=== PATIENT | female | born 1985 | race African-American/Black ===

== ENCOUNTER 2025-08-21 18:11 | Emergency (ER) | payer MEDICAID ==
[~2025-08-21] VITALS: Ht 180.3 cm; Wt 100.0 kg
[2025-08-21 18:20] VITALS: BP 130/66; PULSE 100; RESP 18; TEMP 36.8; O2SAT 98; O2SAT 99
[2025-08-21 19:54] LABS: BASOPHILS % 0.3 % (0.0-2.0); EOSINOPHILS % 0.7 % (0.0-5.0); HEMATOCRIT. 36.0 % (36.0-48.0); HEMOGLOBIN. 11.5 g/dL (12.0-16.0); LYMPHOCYTES % 31.0 % (20.0-50.0); MEAN PLATELET VOLUME 8.8 fl (7.4-10.4); MONOCYTES % 9.1 % (2.0-8.0); NEUTROPHILS % 58.9 % (40.0-76.0); PLATELET 259 x1000/uL (130-400); RED BLOOD CELL COUNT 4.31 mill/uL (4.2-5.4); RED CELL DISTRIBUTION WIDTH 14.4 % (11.6-14.6)
[2025-08-21 20:08] LABS: CREATININE 0.8 mg/dL (0.6-1.0); UREA NITROGEN BLOOD 15 mg/dL (9-23)
[2025-08-21 20:28] LABS: CLARITY URINE CLEAR (CLEAR); COLOR URINE DARK YELLOW (YELLOW)
[2025-08-21 20:29] LABS: GLUCOSE URINE NEGATIVE (NEGATIVE); KETONES URINE TRACE (NEGATIVE); LEUKOCYTE ESTERASE URINE NEGATIVE (NEGATIVE); NITRITE URINE NEGATIVE (NEGATIVE); OCCULT BLOOD URINE NEGATIVE (NEGATIVE); PH URINE 5.5 (4.5-8.0); PROTEIN URINE TRACE (NEGATIVE); SPECIFIC GRAVITY URINE 1.036 (1.005-1.030); UROBILINOGEN URINE 1.0 E.U./dL (0.2-1.0)
[2025-08-21] MEDS: HYDROCODONE/ACETAMINOPHEN 5/325MG TABLET PO ONE (20:35)
[2025-08-21] MEDS: LIDOCAINE 5% PATCH TOP SCH (20:35)
[2025-08-21] MEDS: KETOROLAC 30MG/ML VIAL IM ONE (20:35)
[2025-08-21 20:42] LABS: BACTERIA URINE 2+; RBC URINE 0-2 /hpf (0-2); SQUAMOUS EPITHELIAL CELL URINE 1+ /lpf (RARE/1+); WBC URINE 0-2 /hpf (0-2)
[2025-08-21] MEDS: DIPHENHYDRAMINE 25MG CAPSULE PO ONE (21:50)
[2025-08-21] MEDS ORDERED: IBUP-1455 MT (22:03)
[2025-08-21] MEDS ORDERED: TOPUD PO (22:03)
[2025-08-21] MEDS ORDERED: HYDR-4001 MT (22:03)
== END 2025-08-21 22:15 | disposition home or self-care (01) ==
LOC: ER 18:11
DX: M25.512 Pain in left shoulder (principal); R10.9 Unspecified abdominal pain; I10 Essential (primary) hypertension; J45.909 Unspecified asthma, uncomplicated; Z71.82 Exercise counseling; Y04.0XXA Assault by unarmed brawl or fight, initial encounter; Y92.009 Unspecified place in unspecified non-institutional (private) residence as the place of occurrence of the external cause; Y93.89 Activity, other specified; Y99.8 Other external cause status
CPT/HCPCS: 99284; 80048; 81003; 81025; 85025; 36415; 73030; 96372; J1885; Q0163; A4565